=== PATIENT | female | born 1955 | race Caucasian/White ===

== ENCOUNTER 2020-02-26 16:30 | Outpatient (CLI) | payer MEDICARE ==
[2020-02-26 20:04] LABS: MEAN CORPUSCULAR HEMOGLOBIN 30.5 pg (27.0-31.0); MEAN CORPUSCULAR HGB CONC 29.6 g/dL (32.0-36.0); MEAN CORPUSCULAR VOLUME 102.9 fL (81.0-99.0); MEAN PLATELET VOLUME 9.7 fL (7.9-10.8); RED BLOOD COUNT 1.74 10^6/uL (4.20-5.40); RED CELL DISTRIBUTION WIDTH 16.2 % (12.0-15.0); WHITE BLOOD COUNT 3.7 x10^3/uL (4.8-10.8)
[2020-02-26 20:07] LABS: BILIRUBIN,URINE NEGATIVE (NEGATIVE); GLUCOSE, URINE (UA) NEGATIVE (NEGATIVE); KETONES,URINE (UA) NEGATIVE (NEGATIVE); LEUKOCYTE ESTERASE, URINE TRACE (NEGATIVE); NITRITE,URINE NEGATIVE (NEGATIVE); OCCULT BLOOD,URINE SMALL (NEGATIVE); PROTEIN,URINE 100 mg/dL (NEGATIVE); UROBILINOGEN,URINE 0.2 (NORMAL) E.U./dL (NORMAL)
[2020-02-26 20:23] LABS: ALBUMIN 3.1 g/dL (3.2-5.5); CALCIUM 8.1 mg/dL (8.5-10.3); CREATININE 4.3 mg/dL (0.4-1.0); PHOSPHORUS 3.8 mg/dL (2.5-4.6)
[2020-02-26 20:29] LABS: HGB - HEMOGLOBIN 5.3 g/dL (12.0-16.0)
[2020-02-26 20:41] LABS: CLARITY,URINE CLEAR (CLEAR)
[2020-02-26 20:42] LABS: BACTERIA,URINE Rare /HPF (None Seen); SQUAMOUS EPITHELIAL CELL,UR RARE Squamous (<= Few)
[2020-02-26 20:56] LABS: CREATININE,URINE 89.4 mg/dL; PROTEIN/CREATININE RATIO,URINE 1.2 (<=0.2)
== END 2020-02-26 16:31 | disposition home or self-care (01) ==
LOC: LAB.S 16:30
PROVIDERS: ATTEND Internal Medicine Nephrology
DX: N17.9 Acute kidney failure, unspecified (principal)
CPT/HCPCS: 36415; 80069; 81001; 81003; 82570; 84156; 85027; 87086

== ENCOUNTER 2020-03-04 17:26 | Outpatient (CLI) | payer MEDICARE ==
[2020-03-04 20:07] LABS: HGB - HEMOGLOBIN 9.6 g/dL (12.0-16.0); MEAN CORPUSCULAR HEMOGLOBIN 30.2 pg (27.0-31.0); MEAN CORPUSCULAR HGB CONC 32.3 g/dL (32.0-36.0); MEAN CORPUSCULAR VOLUME 93.4 fL (81.0-99.0); MEAN PLATELET VOLUME 9.2 fL (7.9-10.8); RED BLOOD COUNT 3.18 10^6/uL (4.20-5.40); RED CELL DISTRIBUTION WIDTH 18.4 % (12.0-15.0); WHITE BLOOD COUNT 6.2 x10^3/uL (4.8-10.8)
== END 2020-03-04 17:27 | disposition home or self-care (01) ==
LOC: LAB.S 17:26
PROVIDERS: ATTEND Internal Medicine
DX: D50.0 Iron deficiency anemia secondary to blood loss (chronic) (principal)
CPT/HCPCS: 36415; 85027

== ENCOUNTER 2020-03-12 08:30 | Outpatient (CLI) | payer MEDICARE ==
[2020-03-12 14:51] LABS: BASOPHILS # (AUTO) 0.1 10^3/uL (0.0-0.1); BASOPHILS % (AUTO) 0.9 %; EOSINOPHILS # (AUTO) 0.1 10^3/uL (0.0-0.7); EOSINOPHILS % (AUTO) 1.8 %; HGB - HEMOGLOBIN 7.5 g/dL (12.0-16.0); LYMPHOCYTES # (AUTO) 1.7 10^3/uL (1.5-3.5); LYMPHOCYTES % (AUTO) 29.3 %; MEAN CORPUSCULAR HEMOGLOBIN 29.4 pg (27.0-31.0); MEAN CORPUSCULAR VOLUME 94.9 fL (81.0-99.0); MEAN PLATELET VOLUME 9.6 fL (7.9-10.8); MONOCYTES # (AUTO) 0.3 10^3/uL (0.0-1.0); MONOCYTES % (AUTO) 5.8 %; NEUTROPHILS # (AUTO) 3.5 10^3/uL (1.5-6.6); PLT - PLATELET COUNT 181 10^3/uL (130-450); RED BLOOD COUNT 2.55 10^6/uL (4.20-5.40); RED CELL DISTRIBUTION WIDTH 16.8 % (12.0-15.0); WHITE BLOOD COUNT 5.7 x10^3/uL (4.8-10.8)
[2020-03-12 15:17] LABS: CALCIUM 8.9 mg/dL (8.5-10.3); CREATININE 4.4 mg/dL (0.4-1.0)
== END 2020-03-12 08:31 | disposition home or self-care (01) ==
LOC: LAB.S 08:30
PROVIDERS: ATTEND Family Medicine
DX: N18.4 Chronic kidney disease, stage 4 (severe) (principal); D63.1 Anemia in chronic kidney disease
CPT/HCPCS: 36415; 80048; 85025

== ENCOUNTER 2020-04-30 09:44 | Outpatient (CLI) | payer MEDICARE ==
[2020-04-30 15:15] LABS: BASOPHILS # (AUTO) 0.1 10^3/uL (0.0-0.1); BASOPHILS % (AUTO) 0.9 %; EOSINOPHILS # (AUTO) 0.4 10^3/uL (0.0-0.7); EOSINOPHILS % (AUTO) 6.7 %; HGB - HEMOGLOBIN 9.3 g/dL (12.0-16.0); LYMPHOCYTES # (AUTO) 1.2 10^3/uL (1.5-3.5); LYMPHOCYTES % (AUTO) 21.8 %; MEAN CORPUSCULAR HEMOGLOBIN 30.2 pg (27.0-31.0); MEAN CORPUSCULAR HGB CONC 32.1 g/dL (32.0-36.0); MEAN CORPUSCULAR VOLUME 94.2 fL (81.0-99.0); MEAN PLATELET VOLUME 9.1 fL (7.9-10.8); MONOCYTES # (AUTO) 0.3 10^3/uL (0.0-1.0); MONOCYTES % (AUTO) 5.9 %; NEUTROPHILS # (AUTO) 3.6 10^3/uL (1.5-6.6); NEUTROPHILS % (AUTO) 64.3 %; PLT - PLATELET COUNT 203 10^3/uL (130-450); RED BLOOD COUNT 3.08 10^6/uL (4.20-5.40); RED CELL DISTRIBUTION WIDTH 15.6 % (12.0-15.0); WHITE BLOOD COUNT 5.6 x10^3/uL (4.8-10.8)
[2020-04-30 15:54] LABS: ALBUMIN 3.6 g/dL (3.2-5.5); ALBUMIN/GLOBULIN RATIO 0.9 (1.0-2.2); BILIRUBIN,TOTAL 0.5 mg/dL (0.2-1.0); CALCIUM 8.5 mg/dL (8.5-10.3); CREATININE 4.5 mg/dL (0.4-1.0); TOTAL PROTEIN 7.6 g/dL (6.7-8.2)
== END 2020-04-30 09:45 | disposition home or self-care (01) ==
LOC: LAB.S 09:44
PROVIDERS: ATTEND Internal Medicine Nephrology
DX: D64.9 Anemia, unspecified (principal); N18.4 Chronic kidney disease, stage 4 (severe); I12.9 Hypertensive chronic kidney disease with stage 1 through stage 4 chronic kidney disease, or unspecified chronic kidney disease
CPT/HCPCS: 36415; 80053; 82728; 83540; 84466; 85025

== ENCOUNTER 2020-05-02 07:00 | Outpatient (CLI) | payer MEDICARE, OTHER ==
[2020-05-02 16:41] LABS: BILIRUBIN,URINE NEGATIVE (NEGATIVE); GLUCOSE, URINE (UA) NEGATIVE (NEGATIVE); KETONES,URINE (UA) NEGATIVE (NEGATIVE); LEUKOCYTE ESTERASE, URINE TRACE (NEGATIVE); NITRITE,URINE NEGATIVE (NEGATIVE); OCCULT BLOOD,URINE MODERATE (NEGATIVE); PH,URINE 5.5 PH (5.0-7.5); PROTEIN,URINE 100 mg/dL (NEGATIVE); UROBILINOGEN,URINE 0.2 (NORMAL) E.U./dL (NORMAL)
[2020-05-02 17:03] LABS: BACTERIA,URINE Rare /HPF (None Seen); CLARITY,URINE HAZY (CLEAR); SQUAMOUS EPITHELIAL CELL,UR RARE Squamous (<= Few)
== END 2020-05-02 23:59 | disposition home or self-care (01) ==
LOC: LAB.R 07:00
PROVIDERS: ATTEND Internal Medicine
DX: I10 Essential (primary) hypertension (principal)
CPT/HCPCS: 81001

== ENCOUNTER 2020-06-06 13:14 | Outpatient (CLI) | payer MEDICARE, OTHER | END 2020-06-06 13:15 | disposition home or self-care (01) | LOC: LAB.S 13:14 | PROVIDERS: ATTEND Internal Medicine Nephrology | DX: Z53.9 Procedure and treatment not carried out, unspecified reason (principal) ==

== ENCOUNTER 2020-08-14 10:54 | Outpatient (CLI) | payer MEDICARE, OTHER ==
[2020-08-14 16:59] LABS: CALCIUM 8.7 mg/dL (8.5-10.3); CREATININE 4.2 mg/dL (0.4-1.0); PHOSPHORUS 5.7 mg/dL (2.5-4.6)
== END 2020-08-14 10:55 | disposition home or self-care (01) ==
LOC: LAB.S 10:54
PROVIDERS: ATTEND Internal Medicine Nephrology
DX: N18.4 Chronic kidney disease, stage 4 (severe) (principal)
CPT/HCPCS: 80069

== ENCOUNTER 2020-10-13 13:20 | Outpatient (CLI) | payer MEDICARE, OTHER ==
[2020-10-13 18:26] LABS: ALBUMIN 3.6 g/dL (3.2-5.5); CALCIUM 7.6 mg/dL (8.5-10.3); CREATININE 4.5 mg/dL (0.4-1.0); PHOSPHORUS 7.8 mg/dL (2.5-4.6); POTASSIUM 3.7 mmol/L (3.5-5.0)
== END 2020-10-13 13:21 | disposition home or self-care (01) ==
LOC: LAB.S 13:20
PROVIDERS: ATTEND Internal Medicine Nephrology
DX: N18.4 Chronic kidney disease, stage 4 (severe) (principal)
CPT/HCPCS: 36415; 80069

== ENCOUNTER 2021-02-03 15:48 | Outpatient (CLI) | payer MEDICARE, OTHER ==
[2021-02-03 20:28] LABS: ALBUMIN 3.8 g/dL (3.2-5.5); CALCIUM 8.5 mg/dL (8.5-10.3); CREATININE 5.2 mg/dL (0.4-1.0); PHOSPHORUS 7.4 mg/dL (2.5-4.6); POTASSIUM 4.2 mmol/L (3.5-5.0)
== END 2021-02-03 15:49 | disposition home or self-care (01) ==
LOC: LAB.S 15:48
PROVIDERS: ATTEND Internal Medicine Nephrology
DX: N18.5 Chronic kidney disease, stage 5 (principal)
CPT/HCPCS: 36415; 80069

== ENCOUNTER 2021-03-21 15:47 | Outpatient (CLI) | payer MEDICARE, OTHER ==
[2021-03-21 20:54] LABS: ALBUMIN 3.9 g/dL (3.2-5.5); CALCIUM 8.7 mg/dL (8.5-10.3); CREATININE 4.5 mg/dL (0.4-1.0); PHOSPHORUS 6.1 mg/dL (2.5-4.6)
== END 2021-03-21 15:48 | disposition home or self-care (01) ==
LOC: LAB.S 15:47
PROVIDERS: ATTEND Internal Medicine Nephrology
DX: N18.4 Chronic kidney disease, stage 4 (severe) (principal)
CPT/HCPCS: 36415; 80069

== ENCOUNTER 2021-07-17 14:43 | Outpatient (CLI) | payer MEDICARE, OTHER ==
[2021-07-17 20:29] LABS: ALBUMIN 3.9 g/dL (3.2-5.5); CALCIUM 9.1 mg/dL (8.5-10.3); CREATININE 4.4 mg/dL (0.4-1.0); PHOSPHORUS 6.3 mg/dL (2.5-4.6); POTASSIUM 3.5 mmol/L (3.5-5.0)
== END 2021-07-17 14:44 | disposition home or self-care (01) ==
LOC: LAB.S 14:43
PROVIDERS: ATTEND Internal Medicine Nephrology
DX: N25.81 Secondary hyperparathyroidism of renal origin (principal); N18.5 Chronic kidney disease, stage 5
CPT/HCPCS: 36415; 80069; 82306; 83970

== ENCOUNTER 2022-08-06 15:11 | Outpatient (CLI) | payer MEDICARE, OTHER ==
[2022-08-06 20:06] LABS: BASOPHILS # (AUTO) 0.1 10^3/uL (0.0-0.1); BASOPHILS % (AUTO) 0.7 %; EOSINOPHILS # (AUTO) 0.2 10^3/uL (0.0-0.7); EOSINOPHILS % (AUTO) 2.7 %; HCT - HEMATOCRIT 35.2 % (37.0-47.0); HGB - HEMOGLOBIN 11.1 g/dL (12.0-16.0); LYMPHOCYTES # (AUTO) 1.9 10^3/uL (1.5-3.5); LYMPHOCYTES % (AUTO) 27.4 %; MEAN CORPUSCULAR HEMOGLOBIN 30.1 pg (27.0-31.0); MEAN CORPUSCULAR HGB CONC 31.5 g/dL (32.0-36.0); MEAN CORPUSCULAR VOLUME 95.4 fL (81.0-99.0); MEAN PLATELET VOLUME 9.8 fL (7.9-10.8); MONOCYTES # (AUTO) 0.4 10^3/uL (0.0-1.0); MONOCYTES % (AUTO) 5.3 %; NEUTROPHILS # (AUTO) 4.3 10^3/uL (1.5-6.6); NEUTROPHILS % (AUTO) 63.8 %; PLT - PLATELET COUNT 155 10^3/uL (130-450); RED BLOOD COUNT 3.69 10^6/uL (4.20-5.40); RED CELL DISTRIBUTION WIDTH 14.5 % (12.0-15.0); WHITE BLOOD COUNT 6.7 x10^3/uL (4.8-10.8)
[2022-08-06 20:08] LABS: BILIRUBIN,URINE NEGATIVE (NEGATIVE); GLUCOSE, URINE (UA) NEGATIVE (NEGATIVE); KETONES,URINE (UA) NEGATIVE (NEGATIVE); LEUKOCYTE ESTERASE, URINE NEGATIVE (NEGATIVE); NITRITE,URINE NEGATIVE (NEGATIVE); OCCULT BLOOD,URINE MODERATE (NEGATIVE); PROTEIN,URINE 100 mg/dL (NEGATIVE); UROBILINOGEN,URINE 0.2 (NORMAL) E.U./dL (NORMAL)
[2022-08-06 20:09] LABS: CLARITY,URINE HAZY (CLEAR)
[2022-08-06 20:16] LABS: BACTERIA,URINE Few /HPF (None Seen); EPITHELIAL CELLS,UR RARE Transitional /HPF (<= Few); SQUAMOUS EPITHELIAL CELL,UR RARE Squamous (<= Few)
[2022-08-06 20:50] LABS: ALBUMIN 4.2 g/dL (3.2-5.5); BILIRUBIN,TOTAL 0.6 mg/dL (0.2-1.0); CALCIUM 9.3 mg/dL (8.5-10.3); CREATININE 5.2 mg/dL (0.4-1.0); POTASSIUM 4.2 mmol/L (3.5-5.0); TOTAL PROTEIN 8.3 g/dL (6.7-8.2)
== END 2022-08-06 15:12 | disposition home or self-care (01) ==
LOC: LAB.S 15:11
PROVIDERS: ATTEND Registered Nurse
DX: I12.0 Hypertensive chronic kidney disease with stage 5 chronic kidney disease or end stage renal disease (principal); N18.5 Chronic kidney disease, stage 5
CPT/HCPCS: 36415; 80053; 81001; 83690; 85025

== ENCOUNTER 2022-08-11 12:59 | Outpatient (CLI) | payer MEDICARE, OTHER ==
[2022-08-11 15:13] LABS: CREATININE,URINE 63.4 mg/dL
[2022-08-11 19:58] LABS: BILIRUBIN,URINE NEGATIVE (NEGATIVE); GLUCOSE, URINE (UA) NEGATIVE (NEGATIVE); HCT - HEMATOCRIT 32.3 % (37.0-47.0); HGB - HEMOGLOBIN 10.3 g/dL (12.0-16.0); KETONES,URINE (UA) NEGATIVE (NEGATIVE); LEUKOCYTE ESTERASE, URINE NEGATIVE (NEGATIVE); MEAN CORPUSCULAR HEMOGLOBIN 29.6 pg (27.0-31.0); MEAN CORPUSCULAR HGB CONC 31.9 g/dL (32.0-36.0); MEAN CORPUSCULAR VOLUME 92.8 fL (81.0-99.0); NITRITE,URINE NEGATIVE (NEGATIVE); OCCULT BLOOD,URINE SMALL (NEGATIVE); PROTEIN,URINE 100 mg/dL (NEGATIVE); RED BLOOD COUNT 3.48 10^6/uL (4.20-5.40); RED CELL DISTRIBUTION WIDTH 14.3 % (12.0-15.0); UROBILINOGEN,URINE 0.2 (NORMAL) E.U./dL (NORMAL); WHITE BLOOD COUNT 6.2 x10^3/uL (4.8-10.8)
[2022-08-11 20:00] LABS: BACTERIA,URINE None Seen /HPF (None Seen); CLARITY,URINE CLEAR (CLEAR); RBC,URINE 0-5 /HPF (0-5); SQUAMOUS EPITHELIAL CELL,UR RARE Squamous (<= Few); WBC,URINE 0-3 /HPF (0-5)
[2022-08-11 20:20] LABS: ALBUMIN 3.8 g/dL (3.2-5.5); CREATININE 5.3 mg/dL (0.4-1.0); PHOSPHORUS 7.4 mg/dL (2.5-4.6); POTASSIUM 4.6 mmol/L (3.5-5.0)
== END 2022-08-11 13:00 | disposition home or self-care (01) ==
LOC: LAB.S 12:59
PROVIDERS: ATTEND Registered Nurse
DX: N18.5 Chronic kidney disease, stage 5 (principal); R30.0 Dysuria; D64.9 Anemia, unspecified
CPT/HCPCS: 36415; 80048; 80069; 81001; 82306; 82570; 83970; 84156; 85027; 87086

== ENCOUNTER 2023-06-08 08:00 | Outpatient (CLI) | payer MEDICARE, OTHER ==
--- NOTE | 2023-06-08 14:48 | XRAY Report ---
PROCEDURE: Chest 2 View X-Ray INDICATIONS: CHEST PAIN TECHNIQUE: 2 views of the chest were acquired. COMPARISON: Chest x-ray 02/04/2020 FINDINGS: Surgical changes and devices: None. Lungs and pleura: Moderate right pleural effusion with adjacent atelectasis or consolidation. The le ft lung appears clear. No pneumothorax. Mediastinum: Mediastinal contours appear normal. Heart size is normal. Bones and chest wall: No suspicious bony lesions. Overlying soft tissues appear unremarkable. IMPRESSION: Moderate right pleural effusion, new compared to 2019. No interval imaging is available. Recommend CT scan for further evaluation to exclude underlying mass. Reviewed by: Jeff Camargo MD on 06/08/2023 2:46 PM PST Approved by: Jeff Camargo MD on 06/08/2023 2:46 PM PST Station ID: [id number]
== END 2023-06-08 23:59 | disposition home or self-care (01) ==
LOC: DI.S 08:00
PROVIDERS: ATTEND Emergency Medicine
DX: J90 Pleural effusion, not elsewhere classified (principal); J02.9 Acute pharyngitis, unspecified

== ENCOUNTER 2023-06-08 08:00 | Outpatient (CLI) | payer MEDICARE, OTHER | END 2023-06-08 08:01 | disposition home or self-care (01) | LOC: LAB.S 08:00 | PROVIDERS: ATTEND Emergency Medicine | DX: J02.9 Acute pharyngitis, unspecified (principal) ==

== ENCOUNTER 2023-06-11 16:39 | Outpatient (CLI) | payer MEDICARE, OTHER ==
--- NOTE | 2023-06-11 16:55 | XRAY Report ---
PROCEDURE: Chest 2 View X-Ray INDICATIONS: PLEURAL EFFUSION TECHNIQUE: 2 views of the chest were acquired. COMPARISON: 06/08/2023 FINDINGS: Surgical changes and devices: None. Lungs and pleura: Question minimal interval decrease in moderately large right pleural effusion with associated significant compressive atelectasis. Left lung is clear. Mediastinum: Mediastinal contours appear normal. Heart size is normal. Bones and chest wall: No suspicious bony lesions. Overlying soft tissues appear unremarkable. IMPRESSION: Question minimal interval decrease in moderately large right pleural effusion. Associated significant compressive atelectasis. Reviewed by: Matthew Harp MD on 06/11/2023 4:53 PM PST Approved by: Matthew Harp MD on 06/11/2023 4:53 PM PST Station ID: [id number]
== END 2023-06-11 23:59 | disposition home or self-care (01) ==
LOC: DI.S 16:39
PROVIDERS: ATTEND Internal Medicine
DX: J90 Pleural effusion, not elsewhere classified (principal); J98.11 Atelectasis

== ENCOUNTER 2023-10-07 12:37 | Outpatient (CLI) | payer MEDICARE, OTHER ==
--- NOTE | 2023-10-08 11:33 | Ultrasound Report ---
LIMITED ULTRASOUND OF RIGHT BREAST AND AXILLA: 10/07/2023 CLINICAL: Palpable right breast lump. Comparison is made to exam dated: 10/07/2023 mammogram - [facility]. Color flow and real-time ultrasound of the right breast 2 o'clock, and axilla regions were performed. Hansen scale images of the real-time examination were reviewed. There is a 1.3 cm x 1 cm x 1 cm irregular mass with a spiculated margin in the right breast at 2 o'cl ock posterior depth 7 cm from the nipple. This correlates as palpated and prior CT mass (06/08/2023) No significant abnormalities were seen sonographically in the right axilla. IMPRESSION: SUSPICIOUS OF MALIGNANCY The 1.3 cm x 1 cm x 1 cm irregular mass in the right breast is at a high suspicion for malignancy. A n ultrasound guided biopsy is recommended. This correlates as palpated and previous CT mass. No significant abnormalities were seen sonographically in the right axilla. This exam was interpreted at Station ID: [id number]. Electronically Signed By: Contreras Brooks M.D. lc/:10/07/2023 14:21:58 Ultrasound BI-RADS: 4c High suspicion of malignancy BI-RADS CATEGORY: (4c) - High Susp Biopsy follow-up [id number] Immediate follow-up LATERALITY: (B)
--- NOTE | 2023-10-08 11:33 | Mammography Report ---
BILATERAL DIGITAL DIAGNOSTIC MAMMOGRAM 3D/2D WITH LATEROMEDIAL: 10/07/2023 CLINICAL: Baseline exam. Patient returns for additional imaging over a suspected mass in the right br east. No prior exams were available for comparison. There are scattered areas of fibroglandular density in both breasts (category b / 25%-50% glandular t issue). No significant masses, calcifications, or other findings are seen in either breast. IMPRESSION: INCOMPLETE: NEEDS ADDITIONAL IMAGING EVALUATION There is no abnormality seen in the right breast to correspond with the area of clinical concern and CT finding, however, ultrasound is recommended. Based on the Tyrer Cuzick model (a risk assessment model) the patient's lifetime risk is 4.3% and her 10 year risk is 2.7%. According to the ACR, ACS, and NCCN guidelines, an annual breast MRI exam marquis g with mammogram is recommended if the patient's lifetime risk is 20% or greater. This exam was interpreted at Station ID: [id number]. NOTE: For mammograms, a report in lay terms will be sent to the patient. Approximately 15% of breast malignancies will not be visualized mammographically. In the management of a palpable breast mass, a negative mammogram must not discourage biopsy of a clinically suspicious lesion. Electronically Signed By: Contreras Brooks M.D. lc/:10/07/2023 14:19:40 ACR BI-RADS Category 0: Incomplete 3340F PARENCHYMAL PATTERN: (A) - The breast(s) demonstrate(s) scattered fibroglandular densities. BI-RADS CATEGORY: (0) - 0 Ultrasound [id number] Immediate follow-up LATERALITY: (B)
== END 2023-10-07 12:38 | disposition home or self-care (01) ==
LOC: DI 12:37
PROVIDERS: ATTEND Registered Nurse
DX: N63.12 Unspecified lump in the right breast, upper inner quadrant (principal); R92.323 Mammographic fibroglandular density, bilateral breasts

== ENCOUNTER 2023-10-21 09:55 | Outpatient (CLI) | payer MEDICARE, OTHER ==
[~2023-10-21 09:55] MED LIST: LIDOCAINE 1%-EPI 1:100000 20 ML MDV ONE; LIDOCAINE-MPF 1% 5 ML VIAL ONE
[2023-10-21] MEDS: LIDOCAINE-MPF 1% 5 ML VIAL TD ONE (11:13)
[2023-10-21] MEDS: LIDOCAINE 1%-EPI 1:100000 20 ML MDV SUBQ ONE (11:14)
--- NOTE | 2023-10-25 09:07 | Mammography Report ---
UNILATERAL RIGHT DIGITAL DIAGNOSTIC MAMMOGRAM WITH LATEROMEDIAL MEDIOLATERAL OBLIQUE - RIGHT BREAST P OST-PROCEDURE IMAGING FOR MARKER PLACEMENT: 10/21/2023 CLINICAL: Post right breast ultrasound biopsy clip placement imaging. No prior exams were available for comparison. There are scattered areas of fibroglandular density in the right breast (category b / 25%-50% glandul ar tissue). There is a marker clip in the appropriate position in the right breast middle depth central to the ni pple seen on the craniocaudal view only. This marker clip placement is at the biopsy site. IMPRESSION: POST PROCEDURE MAMMOGRAM FOR MARKER PLACEMENT There was a successful marker clip placement in the right breast middle depth central to the nipple s een on the craniocaudal view only. Based on the Tyrer Cuzick model (a risk assessment model) the patient's lifetime risk is 4.3% and her 10 year risk is 2.7%. According to the ACR, ACS, and NCCN guidelines, an annual breast MRI exam marquis g with mammogram is recommended if the patient's lifetime risk is 20% or greater. This exam was interpreted at Station ID: Unknown. NOTE: For mammograms, a report in lay terms will be sent to the patient. Approximately 15% of breast malignancies will not be visualized mammographically. In the management of a palpable breast mass, a negative mammogram must not discourage biopsy of a clinically suspicious lesion. Electronically Signed By: Ariadne Callahan M.D. [facility]/:10/23/2023 07:43:01 ACR BI-RADS Category Post-procedure mammogram for marker placement PARENCHYMAL PATTERN: (A) - The breast(s) demonstrate(s) scattered fibroglandular densities. BI-RADS CATEGORY: () - Unspecified - other recall n/a LATERALITY: (B)
--- NOTE | 2023-10-27 10:34 | Ultrasound Report ---
ULTRASOUND GUIDED BIOPSY RIGHT BREAST USING VACUUM DEVICE WITH MARKING DEVICE INSERTED: 10/21/2023 CLINICAL: Right breast mass. PATIENT CONSENT: Risks (minor bleeding, infection, vasovagal reaction and repeat procedure), benefits and alternatives were explained to the patient and written informed consent was obtained. Correlation is made to exams dated: 10/07/2023 ultrasound and 10/07/2023 mammogram - [facility]. An ultrasound guided biopsy using real-time ultrasound was performed for the irregular shaped solid m ass located in the right breast at 2 o'clock middle depth. This was described on the previous mammog cayla and ultrasound reports. The skin was prepped in the usual manner. Topical and local anestheti c was administered to the access site. A skin yaneth was made in the breast. The abnormality was appr oached from the lateral aspect. A biopsy needle was placed adjacent to the abnormality under ultraso und guidance. Once the needle was documented to be in the correct location, a specimen was obtained using the Mammotome biopsy system. A titanium clip was inserted into the biopsy cavity. A sterile d ressing was applied to the access site. The specimen was sent to the laboratory for pathological eloise lysis. IMPRESSION: ULTRASOUND GUIDED BIOPSY MALIGNANT Ultrasound guided biopsy of the solid mass in the right breast at 2 o'clock middle depth was successf ul. Pathology revealed malignant invasive ductal carcinoma (IDC), which is concordant with imaging. Recom mend surgical and oncological consultation. This exam was interpreted at Station ID: [id number]. Ariadne Trujillo M.D., Ph.D. [facility],/:10/26/2023 22:35:00 Entry: denis - 10/27/2023 10:31:59 BI-RADS CATEGORY: () - Unspecified - other recall n/a LATERALITY: (B)
== END 2023-10-21 09:56 | disposition home or self-care (01) ==
LOC: DI 09:55
PROVIDERS: ATTEND Registered Nurse
DX: C50.211 Malignant neoplasm of upper-inner quadrant of right female breast (principal); Z17.0 Estrogen receptor positive status [ER+]
CPT/HCPCS: 19083